=== PATIENT | female | born 1975 | race Caucasian/White ===

== ENCOUNTER 2020-12-26 00:27 | Emergency (ER) | payer OTHER | END 2020-12-26 01:46 | disposition home or self-care (01) | LOC: ER1 00:27 | DX: S61.012D Laceration without foreign body of left thumb without damage to nail, subsequent encounter (principal); L03.012 Cellulitis of left finger; Z90.89 Acquired absence of other organs; Z88.8 Allergy status to other drugs, medicaments and biological substances; Z88.1 Allergy status to other antibiotic agents; W34.00XD Accidental discharge from unspecified firearms or gun, subsequent encounter | CPT/HCPCS: 99283 ==